=== PATIENT | male | born 1970 | race Caucasian/White ===

== ENCOUNTER 2016-07-12 14:52 | Emergency (ER) | payer SELFPAY ==
[~2016-07-12] VITALS: Ht 185.4 cm; Wt 79.5 kg
[~2016-07-12 14:52] MED LIST: ALBU8I INH; BACT800T5 PO; CEPH500C3 PO; ERYTOIN10 RIGHT EYE; IBUP800T23 PO; OMNI1SUS RIGHT EYE
[2016-07-12 14:55] VITALS: BP 138/88; PULSE 89; RESP 16; TEMP 98; O2SAT 99
[2016-07-12] MEDS ORDERED: LIDOCAINE HCL 1% 50 ML VIAL INFIL ONE (15:00)
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
== END 2016-07-12 15:45 | disposition home or self-care (01) ==
LOC: NEPK 14:52
DX: S51.812A Laceration without foreign body of left forearm, initial encounter (principal); X99.1XXA Assault by knife, initial encounter; Y93.89 Activity, other specified; Y92.89 Other specified places as the place of occurrence of the external cause; Y99.8 Other external cause status
CPT/HCPCS: 12002